=== PATIENT | female | born 1995 | race Hispanic/Latino ===

== ENCOUNTER 2024-03-23 12:24 | Emergency (ER) | payer OTHER ==
[~2024-03-23] VITALS: Ht 162.6 cm; Wt 72.6 kg
[2024-03-23 13:35] VITALS: PULSE 81; RESP 18; TEMP 98.9; O2SAT 100
[2024-03-23] MEDS: KETOROLAC TROMETHAMINE 30 MG/ML VIAL IM ONE (14:26)
[2024-03-23] MEDS ORDERED: KETOROLAC TROME10 MG PO (15:14)
== END 2024-03-23 15:45 | disposition home or self-care (01) ==
LOC: FSED 13:22
DX: S82.491A Other fracture of shaft of right fibula, initial encounter for closed fracture (principal); X50.1XXA Overexertion from prolonged static or awkward postures, initial encounter; Y93.01 Activity, walking, marching and hiking; Y92.89 Other specified places as the place of occurrence of the external cause
CPT/HCPCS: 29530; 73562; 99283; J1885